=== PATIENT | female | born 1995 | race African-American/Black ===

== ENCOUNTER 2018-06-22 10:22 | Emergency (ER) | payer OTHER ==
[~2018-06-22] VITALS: Ht 152.4 cm; Wt 41.7 kg
== END 2018-06-22 12:57 | disposition home or self-care (01) ==
LOC: ER 10:22
DX: S82.892A Other fracture of left lower leg, initial encounter for closed fracture (principal); W18.39XA Other fall on same level, initial encounter; Y93.89 Activity, other specified; Y92.89 Other specified places as the place of occurrence of the external cause; Y99.8 Other external cause status

== ENCOUNTER 2019-02-18 10:33 | Outpatient (CLI) | payer OTHER | END 2019-02-18 15:03 | disposition home or self-care (01) | LOC: PRENATAL 10:33 | DX: O02.89 Other abnormal products of conception (principal) ==

== ENCOUNTER → 2019-06-10 | Outpatient (CLI) | payer OTHER | END | disposition home or self-care (01) | LOC: PRENATAL 10:00 | DX: O28.1 Abnormal biochemical finding on antenatal screening of mother (principal); O36.5991 Maternal care for other known or suspected poor fetal growth, unspecified trimester, fetus 1 ==

== ENCOUNTER 2019-06-24 09:48 | Inpatient (IN) | payer OTHER ==
[~2019-06-24] VITALS: Ht 152.4 cm; Wt 3.2 kg
== END 2019-07-14 14:02 | disposition home or self-care (01) | DRG 788 ==
LOC: OB/GYN 07-03 11:30 → O/R 07-11 05:00 → OB/GYN 07-11 07:00
PROVIDERS: ADMIT Specialist
PROC: 4A1HXCZ Monitoring of Products of Conception, Cardiac Rate, External Approach (ICD-10-PCS; 2019-07-11)
PROC: 10D00Z1 Extraction of Products of Conception, Low, Open Approach (ICD-10-PCS; principal; 2019-07-11 07:00)
DX: O82 Encounter for cesarean delivery without indication (principal); Z3A.38 38 weeks gestation of pregnancy; Z37.0 Single live birth; Z22.330 Carrier of Group B streptococcus